=== PATIENT | male | born 1955 | race Two or more races ===

== ENCOUNTER 2017-03-27 08:10 | Day surgery (SDC) | payer OTHER ==
[~2017-03-27] VITALS: Ht 170.2 cm; Wt 65.0 kg
[2017-03-27] VITALS (8 sets, daily range): BP systolic 109–180; BP diastolic 60–104; PULSE 52–94; RESP 14–33; Ht 170.2 cm; Wt 65.0 kg
[~2017-03-27 08:10] MED LIST: NO MEDS
[2017-03-27] MEDS ORDERED: PROPOFOL 20 ML ONE (11:39)
[2017-03-27] MEDS ORDERED: FENTAnyl 50 MCG/ML VIAL ONE (11:39)
[2017-03-27] MEDS ORDERED: ROCURONIUM 50 MG INJ ONE (11:39)
[2017-03-27] MEDS ORDERED: ONDANSETRON 4 MG INJ ONE (11:39)
[2017-03-27] MEDS ORDERED: SUCCINYLCHOLINE CHLORIDE 100 MG/5 ML SYG IV ONE (11:39)
[2017-03-27] MEDS ORDERED: GELATIN SIZE 100 SPONGE ONE (12:07)
[2017-03-27] MEDS ORDERED: LIDOCAINE 2%/EPI 30 ML INJ ONE (12:08)
[2017-03-27] MEDS ORDERED: ATROPINE 1 MG/10 ML SYRINGE ONE (12:21)
[2017-03-27] MEDS ORDERED: NEOSTIGMINE 3 MG/3 ML SYRINGE ONE (12:22)
[2017-03-27] MEDS ORDERED: FENTAnyl 50 MCG/ML VIAL IV PRN ×2 (12:30)
[2017-03-27] MEDS ORDERED: MEPERIDINE 25 MG INJ IV PRN (12:30)
[2017-03-27] MEDS ORDERED: HYDROmorphONE (0.2 MG/ML) 10ML SYG IV PRN ×3 (12:30)
[2017-03-27] MEDS ORDERED: LABETALOL HCL 20MG INJ IV PRN (12:30)
[2017-03-27] MEDS ORDERED: ONDANSETRON 4 MG INJ IV PRN (12:30)
[2017-03-27] MEDS ORDERED: hydrALAzine 20 MG INJ IV PRN (12:30)
--- NOTE | 2017-04-08 14:44 | OPR ---
DATE OF OPERATION: 03/27/2017 PREOPERATIVE DIAGNOSIS: Left otitis perforata. POSTOPERATIVE DIAGNOSIS: Left otitis perforata. OPERATION PERFORMED: Left tympanoplasty. SURGEON: Kory Cardenas MD DESCRIPTION OF PROCEDURE: The patient was brought to the operating room. Under parenteral sedation general orotracheal anesthesia, with the patient in the supine position, sterile sheets and drapes applied. Left ear prepped and draped in the usual manner and examined with a Zeiss operating microscope. There was a posterior-inferior tympanic membrane perforation noted. The margins in the perforation were debrided with a Willis needle. The middle ear was filled with dry Gelfoam. A small incision was made along the posterior earlobe with excision of a fat graft for later use. The incision was closed with an interrupted 5-0 silk suture. The fat graft was brought into the operative field and placed so as to cover all margins of the perforation. The ear canal was filled with dry Gelfoam followed by a light cotton dressing to complete the procedure. The patient was awakened and extubated in the operating room, returned to recovery in excellent condition. ESTIMATED BLOOD LOSS: Nil. COMPLICATIONS: None. Dictated By: Kory Cardenas MD /gregory/tigist /Document#: [id number]
== END 2017-03-27 14:00 | disposition home or self-care (01) ==
LOC: SDS 08:10
PROVIDERS: ATTEND Otolaryngology Otolaryngology/Facial Plastic Surgery
DX: H66.92 Otitis media, unspecified, left ear (principal); I10 Essential (primary) hypertension; F17.200 Nicotine dependence, unspecified, uncomplicated
CPT/HCPCS: 69436; J0461; J2405; J2710; J3010; J7999; Z7512; Z7610